=== PATIENT | male | born 1980 | race African-American/Black ===

== ENCOUNTER 2025-09-19 20:39 | Emergency (ER) | payer MEDICAID, MEDICARE ==
[~2025-09-19] VITALS: Ht 182.9 cm; Wt 135.2 kg
[~2025-09-19 20:39] MED LIST: AMLO5TAB88 PO; ASPI-1406 PO; ATOR-2 PO; CARB-214 PO; CITA10TA16 PO; DIVA-18 PO; EZET-55; EZET10TA81 PO; LIP40 PO; METF-414 MT; RISP1 PO; TRAM50TA3 MT
[2025-09-19 20:53] VITALS: TEMP 36.8; O2SAT 95
[2025-09-20] MEDS ORDERED: ATOR-2 MT (01:35)
[2025-09-20] MEDS ORDERED: HYDR-4001 MT (01:37)
[2025-09-20 02:35] VITALS: BP 146/83; PULSE 72; RESP 16; O2SAT 98
== END 2025-09-20 02:36 | disposition home or self-care (01) ==
LOC: ER 20:39
DX: M54.50 Low back pain, unspecified (principal); I10 Essential (primary) hypertension; E11.9 Type 2 diabetes mellitus without complications; E78.5 Hyperlipidemia, unspecified; F25.9 Schizoaffective disorder, unspecified; G40.909 Epilepsy, unspecified, not intractable, without status epilepticus; Z79.82 Long term (current) use of aspirin; Z79.84 Long term (current) use of oral hypoglycemic drugs; Z88.8 Allergy status to other drugs, medicaments and biological substances; Z95.1 Presence of aortocoronary bypass graft; Z79.899 Other long term (current) drug therapy
CPT/HCPCS: 99283